=== PATIENT | male | born 1950 | race African-American/Black ===

== ENCOUNTER 2017-06-02 01:06 | Emergency (ER) | payer MEDICARE ==
[2017-06-02 01:42] VITALS: BP 147/77; PULSE 94; RESP 16; O2SAT 95
[2017-06-02] MEDS ORDERED: AMLO10 PO (01:44)
[2017-06-02 02:37] VITALS: TEMP 98.9
--- NOTE | 2017-06-02 02:37 | PD ---
HPI Chief Complaint: Pain: Acute or Chronic Time Seen by Provider: 01:23 Travel History International Travel<30 days: No Contact w/Intl Traveler<30days: No Traveled to known affect area: No History of Present Illness HPI Patient is a 66-year-old male who works in [employer] on the floor he was transferring a TBI patient doesn't really have any muscle strength and it is a full weight that he was transferring himself and he felt his shoulder pop left- sided he had severe pain and a half an hour he started vomiting multiple times. He feels as hyperactive bowel sounds and is sent down to the ER by his felt finishing supervisor in the hospital. In the ER he is mildly tachycardic at 100 sinus otherwise he has no complaints except left shoulder tenderness which is reproducible and hyperactive bowels after having vomited on the floor. He takes amlodipine 10 mg for pressure and he takes an aspirin a day no other meds he reports he has allergies to sulfa and prednisone. In the ER he is awake alert looks like a healthy and shaped 66-year-old male [facility] Social History Alcohol Use: No Tobacco Use: No Allergies-Medications (Allergen,Severity, Reaction): Coded Allergies: Sulfa (Sulfonamide Antibiotics) (Verified Allergy, Unknown, 06/02/17) prednisone (Verified Allergy, Unknown, 06/02/17) Reported Meds & Prescriptions Reported Meds & Active Scripts Active Reported Norvasc (Amlodipine Besylate) 10 Mg Tab 10 Mg PO DAILY Review of Systems Except as stated in HPI: all other systems reviewed are Neg Gastrointestinal: Positive: Nausea, Vomiting Musculoskeletal: Positive: Myalgias, Arthralgias (left shoulder. Denies chest pain) Physical Exam Narrative GENERAL: non toxic non septic SKIN: Warm and dry. no diaphoresis HEAD: Atraumatic. Normocephalic. EYES: Pupils equal and round. No scleral icterus. No injection or drainage. ENT: No nasal bleeding or discharge. Mucous membranes pink and moist. NECK: Trachea midline. No JVD. CARDIOVASCULAR: Regular rate and rhythm. RESPIRATORY: No accessory muscle use. Clear to auscultation. Breath sounds equal bilaterally. GASTROINTESTINAL: Abdomen soft, non-tender, nondistended. Hepatic and splenic margins not palpable. MUSCULOSKELETAL: Extremities Left shoulder reproducible pain ...without clubbing, cyanosis, or edema. No obvious deformities. NEUROLOGICAL: Awake and alert. No obvious cranial nerve deficits. Motor grossly within normal limits. Five out of 5 muscle strength in the arms and legs. Normal speech. PSYCHIATRIC: Appropriate mood and affect; insight and judgment normal. Data Data Last Documented VS Vital Signs Date Time Temp Pulse Resp B/P (MAP) Pulse Ox O2 Delivery O2 Flow Rate FiO2 06/02/17 02:56 06/02/17 02:37 98.9 06/02/17 01:42 94 16 95 Room Air Orders Orders Electrocardiogram (06/02/17 02:15) Ketorolac Inj (Toradol Inj) (06/02/17 02:45) Ondansetron Odt (Zofran Odt) (06/02/17 02:45) Ed Discharge Order (06/02/17 02:45) [facility] Medical Decision Making Medical Screen Exam Complete: Yes Emergency Medical Condition: Yes Differential Diagnosis pt has extremity pain reproducible with exam left shoulder N/V but denies CP , DDx Viral gastorenetritis and muscle strain vs contusion , vs CP , myocardial ischenia vs PNA vs costochondritis other strain or ligamentous sprian Narrative Course Labs normal EKG normal Sinus rhythm aand pt insists he wants to go home. He said he caught a GI bug on the hospoital floors and wants to go home Zofran IV given in ED and he is given Rx for Zofran PO outpt follow up I offer admit CP center for HTN and vomit and left shoulder pain he refuses wants to go home to [facility] GI sx Diagnosis Primary Impression: Vomiting Qualified Codes: R11.10 - Vomiting, unspecified Additional Impression: Left shoulder strain Patient Instructions: General Instructions, Shoulder Bursitis (ED) Disposition: 01 DISCHARGE HOME Condition: Pio Carlos MD Jun 02, 2017 02:37
[2017-06-02] MEDS ORDERED: ONDANSETRON ODT 4 MG TAB PO ONE (02:45)
[2017-06-02] MEDS ORDERED: KETOROLAC TROMETHAMINE 60 MG/2 ML (IM) VIAL IM ONE (02:45)
--- NOTE | 2017-06-03 22:57 | EKG ---
Date Performed: 06/02/2017 Time Performed: 01:24:45 PTAGE: 66 years EKG: SINUS TACHYCARDIA MINIMAL VOLTAGE CRITERIA FOR LVH, CONSIDER NORMAL VARIANT ABNORMAL RHYTHM ECG NO PREVIOUS TRACING DOCTOR: Pop Najera Interpretating Date/Time 06/03/2017 22:55:56
== END 2017-06-02 02:56 | disposition home or self-care (01) ==
LOC: NEPE 01:06
DX: R11.10 Vomiting, unspecified (principal); S46.912A Strain of unspecified muscle, fascia and tendon at shoulder and upper arm level, left arm, initial encounter; R00.0 Tachycardia, unspecified; X50.0XXA Overexertion from strenuous movement or load, initial encounter; Y93.F2 Activity, caregiving, lifting; Y92.239 Unspecified place in hospital as the place of occurrence of the external cause; Y99.0 Civilian activity done for income or pay
CPT/HCPCS: 93005; 96372; 99283; J1885